=== PATIENT | female | born 1970 | race Caucasian/White ===

== ENCOUNTER 2019-03-06 11:45 | Inpatient (IN) | payer OTHER ==
[2019-03-06] MEDS ORDERED: Acetaminophen 325 MG Tab PO PRN (15:28)
[2019-03-06] MEDS ORDERED: traMADol 50 MG Tab PO PRN (15:32)
[2019-03-06] MEDS ORDERED: Ketotifen 0.025% Ophth Soln 5 ML Bottle EYEBOTH PRN (15:32)
[2019-03-06] MEDS: oxyCODONE 5 MG Tab PO PRN ×2 (16:44→20:16)
[2019-03-06] MEDS: Acetaminophen 500 MG Tab PO SCH (16:45)
[2019-03-06] MEDS: Escitalopram 20 MG Tab PO SCH (20:07)
[2019-03-06] MEDS: atorvaSTATin 20 MG Tab PO SCH (20:08)
[2019-03-06] MEDS: buPROPion 100 MG Tab PO SCH (20:08)
[2019-03-06] MEDS: Gabapentin 300 MG Cap PO SCH (20:15)
[2019-03-07] MEDS: Acetaminophen 500 MG Tab PO SCH ×3 (01:10→15:50)
[2019-03-07] MEDS: oxyCODONE 5 MG Tab PO PRN ×4 (05:46→21:25)
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
[2019-03-07] MEDS: Oxybutynin 5 MG Tab.ER PO SCH (09:25)
[2019-03-07] MEDS: Polyethylene Glycol 3350 Powder 17 GM Packet PO SCH (09:25)
[2019-03-07] MEDS: Gabapentin 300 MG Cap PO SCH ×2 (09:26→21:22)
[2019-03-07] MEDS: buPROPion 100 MG Tab PO SCH ×2 (09:26→21:26)
[2019-03-07] MEDS: Escitalopram 20 MG Tab PO SCH (21:25)
[2019-03-07] MEDS: atorvaSTATin 20 MG Tab PO SCH (21:26)
[2019-03-08] MEDS: Acetaminophen 500 MG Tab PO SCH ×3 (01:27→15:28)
[2019-03-08] MEDS: Oxybutynin 5 MG Tab.ER PO SCH (08:50)
[2019-03-08] MEDS: Gabapentin 300 MG Cap PO SCH ×2 (08:50→20:23)
[2019-03-08] MEDS: Polyethylene Glycol 3350 Powder 17 GM Packet PO SCH (08:50)
[2019-03-08] MEDS: buPROPion 100 MG Tab PO SCH ×2 (08:51→20:24)
[2019-03-08] MEDS ORDERED: Ondansetron 4 MG Tab.DIS PO PRN (09:06)
[2019-03-08] MEDS ORDERED: Prochlorperazine 10 MG/2 ML SDV IM PRN (09:09)
[2019-03-08] MEDS: oxyCODONE 5 MG Tab PO PRN ×2 (16:19→20:23)
[2019-03-08] MEDS: Enoxaparin 30 MG/0.3 ML Syringe SUBCUT SCH (20:24)
[2019-03-08] MEDS: Escitalopram 20 MG Tab PO SCH (20:25)
[2019-03-09] MEDS: Acetaminophen 500 MG Tab PO SCH ×4 (01:10→23:18)
[2019-03-09] MEDS: oxyCODONE 5 MG Tab PO PRN ×6 (01:14→23:26)
[2019-03-09 08:09] LABS: HBSAG SCREEN Negative (Negative)
[2019-03-09] MEDS: Enoxaparin 30 MG/0.3 ML Syringe SUBCUT SCH ×2 (08:37→20:46)
[2019-03-09] MEDS: Polyethylene Glycol 3350 Powder 17 GM Packet PO SCH (08:37)
[2019-03-09] MEDS: buPROPion 100 MG Tab PO SCH ×2 (08:38→20:49)
[2019-03-09] MEDS: Oxybutynin 5 MG Tab.ER PO SCH (08:38)
[2019-03-09] MEDS: Gabapentin 300 MG Cap PO SCH ×2 (08:43→20:47)
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
[2019-03-09] MEDS: Escitalopram 20 MG Tab PO SCH (20:45)
[2019-03-09] MEDS: Melatonin 3 MG Tab PO PRN (23:24)
[2019-03-10] MEDS: oxyCODONE 5 MG Tab PO PRN ×4 (03:38→19:41)
[2019-03-10] MEDS: Acetaminophen 500 MG Tab PO SCH ×2 (09:18→17:11)
[2019-03-10] MEDS: Enoxaparin 30 MG/0.3 ML Syringe SUBCUT SCH ×2 (09:18→21:31)
[2019-03-10] MEDS: Oxybutynin 5 MG Tab.ER PO SCH (09:18)
[2019-03-10] MEDS: buPROPion 100 MG Tab PO SCH ×2 (09:18→21:32)
[2019-03-10] MEDS: Polyethylene Glycol 3350 Powder 17 GM Packet PO SCH (09:21)
[2019-03-10] MEDS: Gabapentin 300 MG Cap PO SCH ×2 (09:26→21:31)
[2019-03-10] MEDS: Escitalopram 20 MG Tab PO SCH (21:31)
[2019-03-11] MEDS: Acetaminophen 500 MG Tab PO SCH ×3 (00:01→17:56)
[2019-03-11] MEDS: oxyCODONE 5 MG Tab PO PRN ×5 (01:23→21:56)
[2019-03-11] MEDS: Gabapentin 300 MG Cap PO SCH ×2 (08:49→21:00)
[2019-03-11] MEDS: Enoxaparin 30 MG/0.3 ML Syringe SUBCUT SCH ×2 (09:24→20:54)
[2019-03-11] MEDS: Oxybutynin 5 MG Tab.ER PO SCH (09:24)
[2019-03-11] MEDS: Polyethylene Glycol 3350 Powder 17 GM Packet PO SCH (09:24)
[2019-03-11] MEDS: buPROPion 100 MG Tab PO SCH ×2 (09:24→20:57)
[2019-03-11] MEDS: Escitalopram 20 MG Tab PO SCH (20:55)
[2019-03-12] MEDS: Acetaminophen 500 MG Tab PO SCH ×3 (03:10→15:57)
[2019-03-12] MEDS: oxyCODONE 5 MG Tab PO PRN ×3 (08:07→22:35)
[2019-03-12] MEDS: Gabapentin 300 MG Cap PO SCH ×2 (08:11→21:08)
[2019-03-12] MEDS: Polyethylene Glycol 3350 Powder 17 GM Packet PO SCH (11:52)
[2019-03-12] MEDS: Enoxaparin 30 MG/0.3 ML Syringe SUBCUT SCH ×2 (11:52→21:08)
[2019-03-12] MEDS: buPROPion 100 MG Tab PO SCH ×2 (11:53→21:09)
[2019-03-12] MEDS: Oxybutynin 5 MG Tab.ER PO SCH (11:53)
[2019-03-12] MEDS: Escitalopram 20 MG Tab PO SCH (21:07)
[2019-03-13] MEDS: Acetaminophen 500 MG Tab PO SCH ×3 (00:33→15:33)
[2019-03-13] MEDS: oxyCODONE 5 MG Tab PO PRN ×4 (04:07→20:56)
[2019-03-13] MEDS: Enoxaparin 30 MG/0.3 ML Syringe SUBCUT SCH ×2 (08:41→20:52)
[2019-03-13] MEDS: Polyethylene Glycol 3350 Powder 17 GM Packet PO SCH (08:42)
[2019-03-13] MEDS: Gabapentin 300 MG Cap PO SCH ×2 (08:42→20:55)
[2019-03-13] MEDS: Oxybutynin 5 MG Tab.ER PO SCH (08:42)
[2019-03-13] MEDS: buPROPion 100 MG Tab PO SCH ×2 (08:42→20:56)
[2019-03-13] MEDS: Naproxen 500 MG Tab PO SCH ×2 (10:40→20:54)
[2019-03-13] MEDS: Escitalopram 20 MG Tab PO SCH (20:53)
[2019-03-14] MEDS: Acetaminophen 500 MG Tab PO SCH ×3 (00:10→17:22)
[2019-03-14] MEDS: Gabapentin 300 MG Cap PO SCH ×2 (09:10→20:04)
[2019-03-14] MEDS: Naproxen 500 MG Tab PO SCH (09:11)
[2019-03-14] MEDS: buPROPion 100 MG Tab PO SCH ×2 (09:11→20:04)
[2019-03-14] MEDS: Oxybutynin 5 MG Tab.ER PO SCH (09:11)
[2019-03-14] MEDS: Polyethylene Glycol 3350 Powder 17 GM Packet PO SCH (09:12)
[2019-03-14] MEDS: Enoxaparin 30 MG/0.3 ML Syringe SUBCUT SCH ×2 (09:12→20:05)
[2019-03-14] MEDS: oxyCODONE 5 MG Tab PO PRN ×3 (11:05→22:45)
[2019-03-14] MEDS: Escitalopram 20 MG Tab PO SCH (20:04)
[2019-03-14] MEDS: Melatonin 3 MG Tab PO PRN (22:41)
[2019-03-15] MEDS: Acetaminophen 500 MG Tab PO SCH ×2 (09:57)
[2019-03-15] MEDS: Oxybutynin 5 MG Tab.ER PO SCH (10:00)
[2019-03-15] MEDS: buPROPion 100 MG Tab PO SCH (10:00)
[2019-03-15] MEDS: Enoxaparin 30 MG/0.3 ML Syringe SUBCUT SCH (10:00)
[2019-03-15] MEDS: Polyethylene Glycol 3350 Powder 17 GM Packet PO SCH (10:01)
[2019-03-15] MEDS: oxyCODONE 5 MG Tab PO PRN ×2 (10:06→13:59)
[2019-03-15] MEDS: Gabapentin 300 MG Cap PO SCH (10:06)
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
== END 2019-03-15 15:10 | disposition home or self-care (01) | DRG 561 ==
LOC: FB.MS 15:05
PROVIDERS: ADMIT Family Medicine; ATTEND Family Medicine
DX: S32.502D Unspecified fracture of left pubis, subsequent encounter for fracture with routine healing (principal); S32.019D Unspecified fracture of first lumbar vertebra, subsequent encounter for fracture with routine healing; S32.029D Unspecified fracture of second lumbar vertebra, subsequent encounter for fracture with routine healing; S35 Injury of blood vessels at abdomen, lower back and pelvis level; M79.7 Fibromyalgia; F32.9 Major depressive disorder, single episode, unspecified; G25.81 Restless legs syndrome; R32 Unspecified urinary incontinence; K21.9 Gastro-esophageal reflux disease without esophagitis; F90.9 Attention-deficit hyperactivity disorder, unspecified type; E78.5 Hyperlipidemia, unspecified; M17.0 Bilateral primary osteoarthritis of knee; N32.81 Overactive bladder; R74.8 Abnormal levels of other serum enzymes; D50.0 Iron deficiency anemia secondary to blood loss (chronic); V86.59XD Driver of other special all-terrain or other off-road motor vehicle injured in nontraffic accident, subsequent encounter; Z86.718 Personal history of other venous thrombosis and embolism; Z90.710 Acquired absence of both cervix and uterus; Z79.899 Other long term (current) drug therapy; Z98.890 Other specified postprocedural states
CPT/HCPCS: 36415; 76700; 76856; 80053; 80076; 82150; 83690; 85025; 85045; 86803; 87340; 97110-GO; 97110-GP; 97116-GP; 97161-GP; 97165-GO; 97530-GO; 97535-GO; 97542-GO; A9270-GY; J1650